=== PATIENT | female | born 1995 | race Caucasian/White ===

== ENCOUNTER 2021-03-14 09:47 | Emergency (ER) | payer SELFPAY ==
[2021-03-14 11:18] LABS: BLOOD UREA NITROGEN,BUN 12 mg/dL (7.0-18.0); CARBON DIOXIDE,CO2 27.4 mmol/L (21.0-32.0); CHLORIDE,CL 102 mmol/L (98-107); GLUCOSE RANDOM 94 mg/dL (74-106); LIPASE 121 U/L (73-393); POTASSIUM,K 3.7 mmol/L (3.5-5.1); SODIUM,NA 139 mmol/L (136-145)
[2021-03-14] MEDS ORDERED: cefTRIAXone 1 GM in Premix Bag 1 BAG IV ONE (11:48)
--- NOTE | 2021-03-14 11:51 | US ---
Indication: Right upper quadrant pain peer Technique: Sonography of the abdomen was performed limited to the structures discussed below Comparison: None Findings: Mildly prominent liver measuring 13.2 centimeters. Appropriate direction of hepatic flow. Abnormal hepatic echogenicity in a pattern most consistent with fatty infiltration. No intrahepatic biliary ductal dilatation The gallbladder is abnormal. There are multiple calculi identified. Most are mobile but there is a 2 centimeter stone in the gallbladder neck which is not mobile. There is a sonographic Castorena`s sign. Trace pericholecystic fluid by the gallbladder neck. No wall thickening. The wall measures 2 millimeters. The common duct measures 4 millimeters which is normal The right kidney is unremarkable. The pancreas is poorly seen due to overlying bowel gas. Impression: Abnormal gallbladder. The findings are likely due to early acute cholecystitis in the appropriate clinical setting. Hepatic steatosis. I discussed the above findings with Rg Malhotra at 11:45 a.m. on March 14, 2021 Dictated by Sebastián Tirado MD @ 03/14/2021 11:50:36 AM (Electronically Signed)
[2021-03-14] MEDS ORDERED: Lactated Ringers 1,000 ML IV STA (11:55)
--- NOTE | 2021-03-14 12:03 | EDM.PDOC ---
ED HPI GENERAL MEDICAL PROBLEM - General Chief Complaint: Abdominal Pain Stated Complaint: abdominal pain Time Seen by Provider: 03/14/21 10:10 - History of Present Illness INITIAL COMMENTS - FREE TEXT/NARRATIVE: CHIEF COMPLAINT(S): Abdominal pain HISTORY OF PRESENT ILLNESS: This is a 25-year-old and with a past medical history of obesity who comes to the emergency department with a chief complaint of abdominal pain. The patient states that off and on for the last 3 weeks she has been experiencing abdominal pain in the epigastric and right upper quadrant area associated with nonbloody nonbilious vomiting. She states that her last vomit was approximately 8 to 9 hours ago after she had a strawberry. She states that this pain does radiate to her back. She currently rates her pain a 0 out of 10 but when she has her pain is 8 out of 10. She describes it as crampy. She denies any excessive alcohol use and has had no history of cholecystitis. She states that the pain is exacerbated by food. There are no relieving factors. She denies any dysuria, hematuria, vaginal bleeding or vaginal discharge. REVIEW OF SYSTEMS: Constitutional: Denies fever, chills. Eyes: Denies eye pain Ears, Nose, Mouth, & Throat: Denies earache Cardiovascular: Denies chest pain Respiratory: Denies shortness of breath Gastrointestinal: Positive for abdominal pain, nausea, vomiting. Denies diarrhea, medic easier, hematemesis, bilious emesis Genitourinary: Denies hematuria dysuria, vaginal bleeding, vaginal discharge skin:Denies a rash MSK: Denies joint pain Neurological: Denies blurred vision Psychiatric: Denies depression PAST MEDICAL HISTORY: As per history of present illness and as reviewed below otherwise noncontributory. SURGICAL HISTORY: As per history of present illness and as reviewed below otherwise noncontributory. SOCIAL HISTORY: As per history of present illness and as reviewed below otherwise noncontributory. FAMILY HISTORY: As per history of present illness and as reviewed below otherwise noncontributory. EXAMINATION OF ORGAN SYSTEMS/BODY AREAS: Constitutional: Blood pressure is 144/85, heart rate 73, respiratory rate 16 with an oxygen saturation 98% on room air. Temperature 36.2 General: Young woman who does not appear to be in acute distress Psychiatric: Appropriate mood and affect. Eyes: No scleral icterus or conjunctival erythema ENMT: Moist mucous membranes. No pharyngeal erythema Cardiovascular: Regular, rate, and rhythm. No gallops, murmurs, or rubs. Bilateral upper extremity pulses symmetric and intact. No peripheral edema. No JVD. Respiratory: Lungs clear to auscultation bilaterally. No wheezes, rales, or rhonchi. Gastrointestinal: Soft, nondistended, tenderness to palpation in the epigastric and right upper quadrant. Positive Castorena sign. Negative McBurney's. No peritoneal signs genitourinary: No suprapubic tenderness Musculoskeletal: Normal range of motion. Skin: No lesions or abrasions. Neurological: Alert, GCS 15 MEDICAL DECISION MAKING AND COURSE IN THE ED WITH INTERPRETATION/REVIEW OF DIAGNOSTIC STUDIES: This is a 25-year-old woman with a past medical history of obesity who comes to the emergency department with acute abdominal pain that w orsens with food in the epigastric and right upper quadrant with positive Castorena sign who has stable vital signs. At this time I did discuss pain medication administration with the patient. At this time she elected for no pain medication. Patient's last meal was 1:30 AM. I placed her on n.p.o. status and started on maintenance fluids. At this time will obtain CBC, CMP, urine and urine hCG. Obtain a Covid swab. We also obtain a right upper quadrant ultrasound. DDx: Cholecystitis, pancreatitis Laboratory: CBC is unremarkable. CMP is unremarkable. Lipase is normal. hCG is negative. Urinalysis does reveal positive nitrites, negative leukocyte esterase with 2-3 WBCs and 1+ bacteria. This is likely asymptomatic bacteriuria given the patient does not have any symptoms. The radiological images were viewed by myself along with reading the report from the radiologist. Right upper quadrant abdominal ultrasound reveals cholelithiasis with a 2 cm stone stuck in the gallbladder neck associated with positive Castorena sign and pericholecystic fluid. Likely indicating early acute cholecystitis. After the imaging I did start the patient on ceftriaxone and I contacted general surgeon Dr. Bradshaw who stated he would come down and evaluate the patient in the emergency department. Dr. Bradshaw did come and evaluate the patient. At this time he discussed outpatient evaluation tomorrow and surgical intervention in the evening. I did discuss strict return precautions with the patient. She was amenable discharge at this time and had no further questions. She she will follow up tomorrow for surgical intervention DISPOSITION: The patient was discharged home in stable condition. The patient will follow up with General surgery tomorrow for surgery CONDITION: Fair PROCEDURES: None FINAL IMPRESSION(S)/DIAGNOSES: 1. Acute cholecystitis Timothy Malhotra M.D. abdominal Pain Score (Numeric/FACES): 3 - Related Data Allergies Allergy/AdvReac Type Severity Reaction Status Date / Time No Known Allergies Allergy Verified 03/14/21 09:56 Home Meds: Home Meds Hydrocodone/Acetaminophen [HYDROcodone-Acetaminophen 5-325 MG] 1 each PO Q6H #4 tab 03/14/21 [Rx] cephALEXin [Keflex] 500 mg PO BID #6 cap 03/14/21 [Rx] Past Medical History - Past Health History Medical/Surgical History: Denies Medical/Surgical History - Infectious Disease History Infectious Disease History: Reports: None Social & Family History - Family History Family Medical History: No Pertinent Family History GI: Reports: GERD - Caffeine Use Caffeine Use: Reports: Coffee - Recreational Drug Use Recreational Drug Use: Yes Recreational Drug Type: Reports: Marijuana/Hashish Recreational Drug Use Frequency: Daily ED ROS GENERAL - Review of Systems Review Of Systems: See Below ED EXAM, GENERAL - Physical Exam Exam: See Below Course - Vital Signs Last Recorded V/S: Last Vital Signs Temp 36.2 C 03/14/21 09:57 Pulse 67 03/14/21 13:12 Resp 16 03/14/21 13:12 BP 134/93 H 03/14/21 13:12 Pulse Ox 99 03/14/21 13:12 - Orders/Labs/Meds Labs: Laboratory Tests 03/14/21 03/14/21 03/14/21 Range/Units 10:35 10:35 10:45 WBC 10.50 (4.0-11.0) K/uL RBC 5.08 (4.30-5.90) M/uL Hgb 13.8 (12.0-16.0) g/dL Hct 40.8 (36.0-46.0) % MCV 80.3 (80.0-98.0) fL MCH 27.2 (27.0-32.0) pg MCHC 33.8 (31.0-37.0) g/dL RDW Std Deviation 40.1 (28.0-62.0) fl RDW Coeff of Cecil 14 (11.0-15.0) % Plt Count 404 H (150-400) K/uL MPV 9.50 (7.40-12.00) fL Neut % (Auto) 60.2 (48.0-80.0) % Lymph % (Auto) 28.1 (16.0-40.0) % [place] % (Auto) 10.5 (0.0-15.0) % Eos % (Auto) 0.7 (0.0-7.0) % Baso % (Auto) 0.5 (0.0-1.5) % Neut # (Auto) 6.3 H (1.4-5.7) K/uL Lymph # (Auto) 3.0 H (0.6-2.4) K/uL [place] # (Auto) 1.1 H (0.0-0.8) K/uL Eos # (Auto) 0.1 (0.0-0.7) K/uL Baso # (Auto) 0.1 (0.0-0.1) K/uL Nucleated RBC % 0.0 /100WBC Nucleated RBCs # 0 K/uL Sodium (136-145) mmol/L Potassium (3.5-5.1) mmol/L Chloride (98-107) mmol/L Carbon Dioxide (21.0-32.0) mmol/L BUN (7.0-18.0) mg/dL Creatinine (0.6-1.0) mg/dL Est Cr Clr Drug Dosing mL/min Estimated GFR (MDRD) ml/min Glucose (74-106) mg/dL Calcium (8.5-10.1) mg/dL Total Bilirubin (0.2-1.0) mg/dL AST (15-37) IU/L ALT (14-63) IU/L Alkaline Phosphatase (46-116) U/L Total Protein (6.4-8.2) g/dL Albumin (3.4-5.0) g/dL Globulin (2.6-4.0) g/dL Albumin/Globulin Ratio (0.9-1.6) Lipase (73-393) U/L Urine Color DARK YELLOW Urine Appearance CLOUDY Urine pH 6.0 (5.0-8.0) Ur Specific [place] >= 1.030 (1.001-1.035) Urine Protein TRACE H (NEGATIVE) mg/dL Urine Glucose (UA) NEGATIVE (NEGATIVE) mg/dL Urine Ketones 15 H (NEGATIVE) mg/dL Urine Occult Blood TRACE-INTACT H (NEGATIVE) Urine Nitrite POSITIVE H (NEGATIVE) Urine Bilirubin MODERATE H (NEGATIVE) Urine Urobilinogen 1.0 (<2.0) EU/dL Ur Leukocyte Esterase NEGATIVE (NEGATIVE) Urine RBC 0-2 (0-2/HPF) Urine WBC 2-3 (0-5/HPF) Ur Epithelial Cells FEW (NONE-FEW) Urine Bacteria 1+ H (NEGATIVE) Urine Mucus MODERATE (NONE-MOD) Urine HCG, Qual NEGATIVE (NEGATIVE) Influenza Type A RNA (NEGATIVE) Influenza Type B RNA (NEGATIVE) SARS-CoV-2 RNA (SORAYA) (NEGATIVE) 03/14/21 03/14/21 Range/Units 10:45 11:59 WBC (4.0-11.0) K/uL RBC (4.30-5.90) M/uL Hgb (12.0-16.0) g/dL Hct (36.0-46.0) % MCV (80.0-98.0) fL MCH (27.0-32.0) pg MCHC (31.0-37.0) g/dL RDW Std Deviation (28.0-62.0) fl RDW Coeff of Cecil (11.0-15.0) % Plt Count (150-400) K/uL MPV (7.40-12.00) fL Neut % (Auto) (48.0-80.0) % Lymph % (Auto) (16.0-40.0) % Louis[place] % (Auto) (0.0-15.0) % Eos % (Auto) (0.0-7.0) % Baso % (Auto) (0.0-1.5) % Neut # (Auto) (1.4-5.7) K/uL Lymph # (Auto) (0.6-2.4) K/uL [place] # (Auto) (0.0-0.8) K/uL Eos # (Auto) (0.0-0.7) K/uL Baso # (Auto) (0.0-0.1) K/uL Nucleated RBC % /100WBC Nucleated RBCs # K/uL Sodium 139 (136-145) mmol/L Potassium 3.7 (3.5-5.1) mmol/L Chloride 102 (98-107) mmol/L Carbon Dioxide 27.4 (21.0-32.0) mmol/L BUN 12 (7.0-18.0) mg/dL Creatinine 1.0 (0.6-1.0) mg/dL Est Cr Clr Drug Dosing 84.36 mL/min Estimated GFR (MDRD) > 60.0 ml/min Glucose 94 (74-106) mg/dL Calcium 9.4 (8.5-10.1) mg/dL Total Bilirubin 0.8 (0.2-1.0) mg/dL AST 16 (15-37) IU/L ALT 42 (14-63) IU/L Alkaline Phosphatase 51 (46-116) U/L Total Protein 7.5 (6.4-8.2) g/dL Albumin 4.1 (3.4-5.0) g/dL Globulin 3.4 (2.6-4.0) g/dL Albumin/Globulin Ratio 1.2 (0.9-1.6) Lipase 121 (73-393) U/L Urine Color Urine Appearance Urine pH (5.0-8.0) Ur Specific [place] (1.001-1.035) Urine Protein (NEGATIVE) mg/dL Urine Glucose (UA) (NEGATIVE) mg/dL Urine Ketones (NEGATIVE) mg/dL Urine Occult Blood (NEGATIVE) Urine Nitrite (NEGATIVE) Urine Bilirubin (NEGATIVE) Urine Urobilinogen (<2.0) EU/dL Ur Leukocyte Esterase (NEGATIVE) Urine RBC (0-2/HPF) Urine WBC (0-5/HPF) Ur Epithelial Cells (NONE-FEW) Urine Bacteria (NEGATIVE) Urine Mucus (NONE-MOD) Urine HCG, Qual (NEGATIVE) Influenza Type A RNA NEGATIVE (NEGATIVE) Influenza Type B RNA NEGATIVE (NEGATIVE) SARS-CoV-2 RNA (SORAYA) NEGATIVE (NEGATIVE) Meds: Medications Discontinued Medications Generic Name Dose Route Start Last Admin Trade Name Freq PRN Reason Stop Dose Admin Ceftriaxone Sodium/Dextrose 1 50 mls @ 100 mls/hr 03/14/21 11:48 03/14/21 12:02 gm/ Premix IV 03/14/21 12:17 100 mls/hr ONETIME ONE Administration Lactated Ringer's 1,000 mls @ 125 mls/hr 03/14/21 11:55 03/14/21 12:06 Ringers, Lactated IV 03/14/21 19:54 125 mls/hr STAT STA Administration Departure - Departure Time of Disposition: 13:10 Disposition: Home, Self-Care 01 Condition: Fair Clinical Impression: Cholecystitis, UTI (urinary tract infection) - Discharge Information *PRESCRIPTION DRUG MONITORING PROGRAM REVIEWED*: No *COPY OF PRESCRIPTION DRUG MONITORING REPORT IN PATIENT MIKHAIL: No Prescriptions: Hydrocodone/Acetaminophen [HYDROcodone-Acetaminophen 5-325 MG] 1 each PO Q6H #4 tab cephALEXin [Keflex] 500 mg PO BID #6 cap Instructions: Urinary Tract Infection, Adult, [id number], Cholecystitis, [id number] Referrals: Zina Diaz [employer]ACHINE [Primary Care Provider] - Forms: ED Department Discharge Additional Instructions: You were evaluated today on an emergent basis. At this time there is evidence of a gallstone stuck in your gallbladder causing inflammation. What we call this is cholecystitis. I recommend that you do not drink any fluids after midnight and you may use the [place] every 6 hours as needed for severe pain. In addition per recommendation of the general surgeon I did start you on Keflex. This is for the UTI on your labs. Please take this twice a day for the next 3 days. If you have any worsening symptoms such as fever, worsening abdominal pain I would like you to return to the emergency department. Your prescriptions were sent to [facility]. [facility] - General Surgery [address], [address] [place] [address] The patient is informed of any results of their evaluation and diagnostic workup and all questions are answered. They are given discharge instructions and return precautions. The patient is stable for discharge. The patient states they understand and agree with the plan and that they will return if their symptoms get worse or if they have any new concerns. The following information is given to patients seen in the emergency department who are being discharged to home. This information is to outline your options for follow-up care. We provide all patients seen in our emergency department with a follow-up referral. The need for follow-up, as well as the timing and circumstances, are variable depending upon the specifics of your emergency department visit. If you don't have a primary care physician on staff, we will provide you with a referral. We always advise you to contact your personal physician following an emergency department visit to inform them of the circumstance of the visit and for follow-up with them and/or the need for any referrals to a consulting specialist. The emergency department will also refer you to a specialist when appropriate. This referral assures that you have the opportunity for follow-up care with a specialist. All of these measure are taken in an effort to provide you with optimal care, which includes your follow-up. Under all circumstances we always encourage you to contact your private physician who remains a resource for coordinating your care. When calling for follow-up care, please make the office aware that this follow-up is from your recent emergency room visit. If for any reason you are refused follow-up, please contact the [facility] Emergency Department at and asked to speak to the emergency department charge nurse. Sepsis Event Note (ED) - Evaluation Sepsis Screening Result: No Definite Risk
[2021-03-14 12:40] LABS: CORONAVIRUS COVID-19 NAA NEGATIVE (NEGATIVE); INFLUENZA A NAA NEGATIVE (NEGATIVE); INFLUENZA B NAA NEGATIVE (NEGATIVE)
[2021-03-14 13:29] VITALS: BP 134/93; PULSE 67
--- NOTE | 2021-03-14 15:40 | PCM.HP.2 ---
H&P History of Present Illness - General Date of Service: 03/14/21 Admit Problem/Dx: cholecystitis - History of Present Illness Initial Comments - Free Text/Narative: This is admission h/p and ED consult for the pt; Pt seen in ED for n/vomitting/abd pain, work up included US revealed, many stones and 1 large one was on neck of gallbladder. Surgery was consulted; pt remarked its been 1 month since happening, usually it is RUQ pain, radiated to high back via right shoulder; denied jaundice/darl irome/white stool abdominal Pain Score (Numeric/FACES): 4 - Related Data Allergies/Adverse Reactions: Allergies Allergy/AdvReac Type Severity Reaction Status Date / Time No Known Allergies Allergy Verified 03/14/21 09:56 Home Medications: Home Meds Hydrocodone/Acetaminophen [HYDROcodone-Acetaminophen 5-325 MG] 1 each PO Q6H #4 tab 03/14/21 [Rx] cephALEXin [Keflex] 500 mg PO BID #6 cap 03/14/21 [Rx] Past Medical History - Past Health History Medical/Surgical History: Denies Medical/Surgical History - Infectious Disease History Infectious Disease History: Reports: None - Past Surgical History Head Surgeries/Procedures: Reports: None Social & Family History - Family History Family Medical History: No Pertinent Family History GI: Reports: GERD - Caffeine Use Caffeine Use: Reports: Coffee - Recreational Drug Use Recreational Drug Use: Yes Recreational Drug Type: Reports: Marijuana/Hashish Recreational Drug Use Frequency: Daily H&P Review of Systems - Review of Systems: Review Of Systems: Comprehensive ROS is negative, except as noted in HPI. General: Reports: No Symptoms HEENT: Reports: No Symptoms Pulmonary: Reports: No Symptoms Cardiovascular: Reports: No Symptoms Gastrointestinal: Reports: Abdominal Pain Genitourinary: Reports: No Symptoms Musculoskeletal: Reports: No Symptoms Skin: Reports: No Symptoms Psychiatric: Reports: Agitation Neurological: Reports: No Symptoms Hematologic/Lymphatic: Reports: No Symptoms Immunologic: Reports: No Symptoms Exam - Exam Exam: See Below - Vital Signs Vital Signs: Last Vital Signs Temp 97.1 F 03/14/21 09:57 Pulse 67 03/14/21 13:12 Resp 16 03/14/21 13:12 BP 134/93 H 03/14/21 13:12 Pulse Ox 99 03/14/21 13:12 Weight: 240 lb - Exam General: Alert, Oriented HEENT: Conjunctiva Clear Neck: Supple, Trachea Midline Lungs: Clear to Auscultation, Rhonchi Cardiovascular: Regular Rate, Regular Rhythm GI/Abdominal Exam: Normal Bowel Sounds, Soft, No Organomegaly, No Distention (Female) Exam: Normal External Exam, Normal Speculum Exam, Normal Bimanual Exam Rectal (Female) Exam: Normal Exam, Normal Rectal Tone Back Exam: Normal Inspection, Full Range of Motion (motor 5/5) Extremities: Normal Inspection, Normal Range of Motion, Non-Tender, No Pedal Edema, Normal Capillary Refill Skin: Warm, Dry, Intact Neurological: Cranial Nerves Intact, Reflexes Equal Bilateral Neuro Extensive - Mental Status: Alert, Oriented x3, Normal Mood/Affect, Normal Cognition Neuro Extensive - Motor, Sensory, Reflexes: CN II-XII Intact, Normal Gait, No rmal Reflexes Psychiatric: Alert, Normal Affect, Normal Mood - Patient Data Lab Results Last 24 hrs: Laboratory Results - last 24 hr 03/14/21 03/14/21 03/14/21 Range/Units 10:35 10:35 10:45 WBC 10.50 (4.0-11.0) K/uL RBC 5.08 (4.30-5.90) M/uL Hgb 13.8 (12.0-16.0) g/dL Hct 40.8 (36.0-46.0) % MCV 80.3 (80.0-98.0) fL MCH 27.2 (27.0-32.0) pg MCHC 33.8 (31.0-37.0) g/dL RDW Std Deviation 40.1 (28.0-62.0) fl RDW Coeff of Cecil 14 (11.0-15.0) % Plt Count 404 H (150-400) K/uL MPV 9.50 (7.40-12.00) fL Neut % (Auto) 60.2 (48.0-80.0) % Lymph % (Auto) 28.1 (16.0-40.0) % [place] % (Auto) 10.5 (0.0-15.0) % Eos % (Auto) 0.7 (0.0-7.0) % Baso % (Auto) 0.5 (0.0-1.5) % Neut # (Auto) 6.3 H (1.4-5.7) K/uL Lymph # (Auto) 3.0 H (0.6-2.4) K/uL [place] # (Auto) 1.1 H (0.0-0.8) K/uL Eos # (Auto) 0.1 (0.0-0.7) K/uL Baso # (Auto) 0.1 (0.0-0.1) K/uL Nucleated RBC % 0.0 /100WBC Nucleated RBCs # 0 K/uL Sodium (136-145) mmol/L Potassium (3.5-5.1) mmol/L Chloride (98-107) mmol/L Carbon Dioxide (21.0-32.0) mmol/L BUN (7.0-18.0) mg/dL Creatinine (0.6-1.0) mg/dL Est Cr Clr Drug Dosing mL/min Estimated GFR (MDRD) ml/min Glucose (74-106) mg/dL Calcium (8.5-10.1) mg/dL Total Bilirubin (0.2-1.0) mg/dL AST (15-37) IU/L ALT (14-63) IU/L Alkaline Phosphatase (46-116) U/L Total Protein (6.4-8.2) g/dL Albumin (3.4-5.0) g/dL Globulin (2.6-4.0) g/dL Albumin/Globulin Ratio (0.9-1.6) Lipase (73-393) U/L Urine Color DARK YELLOW Urine Appearance CLOUDY Urine pH 6.0 (5.0-8.0) Ur Specific [place] >= 1.030 (1.001-1.035) Urine Protein TRACE H (NEGATIVE) mg/dL Urine Glucose (UA) NEGATIVE (NEGATIVE) mg/dL Urine Ketones 15 H (NEGATIVE) mg/dL Urine Occult Blood TRACE-INTACT H (NEGATIVE) Urine Nitrite POSITIVE H (NEGATIVE) Urine Bilirubin MODERATE H (NEGATIVE) Urine Urobilinogen 1.0 (<2.0) EU/dL Ur Leukocyte Esterase NEGATIVE (NEGATIVE) Urine RBC 0-2 (0-2/HPF) Urine WBC 2-3 (0-5/HPF) Ur Epithelial Cells FEW (NONE-FEW) Urine Bacteria 1+ H (NEGATIVE) Urine Mucus MODERATE (NONE-MOD) Urine HCG, Qual NEGATIVE (NEGATIVE) Influenza Type A RNA (NEGATIVE) Influenza Type B RNA (NEGATIVE) SARS-CoV-2 RNA (SORAYA) (NEGATIVE) 03/14/21 03/14/21 Range/Units 10:45 11:59 WBC (4.0-11.0) K/uL RBC (4.30-5.90) M/uL Hgb (12.0-16.0) g/dL Hct (36.0-46.0) % MCV (80.0-98.0) fL MCH (27.0-32.0) pg MCHC (31.0-37.0) g/dL RDW Std Deviation (28.0-62.0) fl RDW Coeff of [place] (11.0-15.0) % Plt Count (150-400) K/uL MPV (7.40-12.00) fL Neut % (Auto) (48.0-80.0) % Lymph % (Auto) (16.0-40.0) % [place] % (Auto) (0.0-15.0) % Eos % (Auto) (0.0-7.0) % Baso % (Auto) (0.0-1.5) % Neut # (Auto) (1.4-5.7) K/uL Lymph # (Auto) (0.6-2.4) K/uL [place] # (Auto) (0.0-0.8) K/uL Eos # (Auto) (0.0-0.7) K/uL Baso # (Auto) (0.0-0.1) K/uL Nucleated RBC % /100WBC Nucleated RBCs # K/uL Sodium 139 (136-145) mmol/L Potassium 3.7 (3.5-5.1) mmol/L Chloride 102 (98-107) mmol/L Carbon Dioxide 27.4 (21.0-32.0) mmol/L BUN 12 (7.0-18.0) mg/dL Creatinine 1.0 (0.6-1.0) mg/dL Est Cr Clr Drug Dosing 84.36 mL/min Estimated GFR (MDRD) > 60.0 ml/min Glucose 94 (74-106) mg/dL Calcium 9.4 (8.5-10.1) mg/dL Total Bilirubin 0.8 (0.2-1.0) mg/dL AST 16 (15-37) IU/L ALT 42 (14-63) IU/L Alkaline Phosphatase 51 (46-116) U/L Total Protein 7.5 (6.4-8.2) g/dL Albumin 4.1 (3.4-5.0) g/dL Globulin 3.4 (2.6-4.0) g/dL Albumin/Globulin Ratio 1.2 (0.9-1.6) Lipase 121 (73-393) U/L Urine Color Urine Appearance Urine pH (5.0-8.0) Ur Specific [place] (1.001-1.035) Urine Protein (NEGATIVE) mg/dL Urine Glucose (UA) (NEGATIVE) mg/dL Urine Ketones (NEGATIVE) mg/dL Urine Occult Blood (NEGATIVE) Urine Nitrite (NEGATIVE) Urine Bilirubin (NEGATIVE) Urine Urobilinogen (<2.0) EU/dL Ur Leukocyte Esterase (NEGATIVE) Urine RBC (0-2/HPF) Urine WBC (0-5/HPF) Ur Epithelial Cells (NONE-FEW) Urine Bacteria (NEGATIVE) Urine Mucus (NONE-MOD) Urine HCG, Qual (NEGATIVE) Influenza Type A RNA NEGATIVE (NEGATIVE) Influenza Type B RNA NEGATIVE (NEGATIVE) SARS-CoV-2 RNA (SORAYA) NEGATIVE (NEGATIVE) Result Diagrams: 03/14/21 10:45 03/14/21 10:45 Sepsis Event Note - Evaluation Sepsis Screening Result: No Definite Risk - Focused Exam Vital Signs: Vital Signs Temp Pulse Resp BP Pulse Ox 03/14/21 13:12 67 16 134/93 H 99 03/14/21 12:41 69 129/83 99 03/14/21 11:41 59 L 135/86 99 03/14/21 11:12 65 122/68 98 03/14/21 09:57 97.1 F 73 16 144/85 H 98 *Q Meaningful Use (ADM) - VTE *Q VTE Criteria *Q: pt is ambulatory Problem List Initiated/Reviewed/Updated: Yes Orders Last 24hrs: Active Orders 24 hr Category Date Time Status Consult to Physician [CONS] Stat Cons 03/14/21 11:54 Active WBC 10, LFT wnl, US has pericholecystetic fluid, and many stones; pt would benefit from gb surgery, lap vs open, rb dw pt re bleeding/infection/bile leak/postop course; pt concur and proceed; pt also has UTI from UA, but asymptomatic, would give script for pain and abx; preop teaching done; surgery scheduled for tomorrow; pt voiced understanding; Assessment/Plan Comment:: Active Orders 24 hr Category Date Time Status Consult to Physician [CONS] Stat Cons 03/14/21 11:54 Active WBC 10, LFT wnl, US has pericholecystetic fluid, and many stones; pt would benefit from gb surgery, lap vs open, rb dw pt re bleeding/infection/bile leak/ postop course; pt concur and proceed; pt also has UTI from UA, but asymptomatic, would give script for pain and abx; preop teaching done; surgery scheduled for tomorrow; pt voiced understanding;
== END 2021-03-14 13:31 | disposition home or self-care (01) ==
LOC: MW.ED 09:47
DX: N39.0 Urinary tract infection, site not specified (principal); K81.0 Acute cholecystitis; E66.9 Obesity, unspecified; Z20.822 Contact with and (suspected) exposure to COVID-19; Z68.37 Body mass index [BMI] 37.0-37.9, adult
CPT/HCPCS: 0240U; 36415; 76705; 80053; 81001; 81025; 83690; 85025; 96365; 99284; J0696; J7120

== ENCOUNTER 2021-03-15 09:25 | Day surgery (SDC) | payer BC ==
[~2021-03-15 09:25] MED LIST: Lactated Ringers 1,000 ML IV SCH; cefOXitin 2 GM in Premix Bag 1 BAG IV ONE
[2021-03-15] MEDS ORDERED: Scopolamine 1.5 MG Transdermal Patch ONE (10:20)
[2021-03-15] MEDS ORDERED: Bupivacaine 25%/EPINEPHrine/PF 30 ML ONE (10:26)
[2021-03-15] MEDS ORDERED: Octyl 2-Cyanoacrylate 1 Tube ONE (10:26)
[2021-03-15] MEDS ORDERED: Propofol 200 MG/20 ML SDV ONE ×2 (10:49→12:06)
[2021-03-15] MEDS ORDERED: Lidocaine 2% 5 ML SDV ONE (10:49)
[2021-03-15] MEDS ORDERED: Dexamethasone 4 MG/ML 5 ML MDV ONE (10:49)
[2021-03-15] MEDS ORDERED: Rocuronium Bromide 50 MG/5 ML Syringe ONE ×2 (10:49→11:35)
[2021-03-15] MEDS ORDERED: Midazolam 1 MG/ML 2 ML SDV ONE (10:49)
[2021-03-15] MEDS ORDERED: fentaNYL 100 MCG/2 ML SDV ONE ×2 (10:49→12:38)
[2021-03-15] MEDS ORDERED: Esmolol 100 MG/10 ML SDV ONE (10:50)
[2021-03-15] MEDS ORDERED: Water For Injection, Sterile 20 ML ONE (10:52)
--- NOTE | 2021-03-15 11:03 | PCM.PREANE ---
Preanesthetic Assessment - Procedure Proposed Procedure: Lap Angela - Anesthesia/Transfusion/Family Hx Anesthesia History: Prior Anesthesia Without Reaction Family History of Anesthesia Reaction: No Transfusion History: No Prior Transfusion(s) - Review of Systems General: No Symptoms Pulmonary: No Symptoms (Smokes 1/2 PPD) Cardiovascular: No Symptoms Gastrointestinal: No Symptoms Neurological: No Symptoms Other: Reports: None - Physical Assessment NPO Status Date: 03/14/21 NPO Status Time: 22:30 Height: 5 ft 7 in Weight: 112.037 kg ASA Class: 2 Mental Status: Alert & Oriented x3 Airway Class: Mallampati = 2 Dentition: Reports: Normal Dentition Thyro-Mental Finger Breadths: 3 Mouth Opening Finger Breadths: 3 ROM/Head Extension: Full Lungs: Clear to Auscultation, Normal Respiratory Effort Cardiovascular: Regular Rate, Regular Rhythm - Allergies Allergies/Adverse Reactions: Allergies Allergy/AdvReac Type Severity Reaction Status Date / Time No Known Allergies Allergy Verified 03/14/21 09:56 - Acknowledgements Anesthesia Type Planned: General Anesthesia Pt an Appropriate Candidate for the Planned Anesthesia: Yes Alternatives and Risks of Anesthesia Discussed w Pt/Guardian: Yes Pt/Guardian Understands and Agrees with Anesthesia Plan: Yes PreAnesthesia Questionnaire - Past Health History Medical/Surgical History: Denies Medical/Surgical History HEENT History: Reports: Other (See Below) Other HEENT History: wears glasses Gastrointestinal History: Reports: Cholelithiasis Other Musculoskeletal History: bursitis in right hip Endocrine/Metabolic History: Reports: Obesity/BMI 30+ - Infectious Disease History Infectious Disease History: Reports: None - Past Surgical History Head Surgeries/Procedures: Reports: None - SUBSTANCE USE Tobacco Use Status *Q: Current Every Day Tobacco User Tobacco Use Within Last Twelve Months: Cigarettes Recreational Drug Type: Reports: Marijuana/Hashish - HOME MEDS Home Medications: Home Meds Hydrocodone/Acetaminophen [HYDROcodone-Acetaminophen 5-325 MG] 1 each PO Q6H #4 tab 03/14/21 [Rx] cephALEXin [Keflex] 500 mg PO BID #6 cap 03/14/21 [Rx] - CURRENT (IN HOUSE) MEDS Current Meds: Current Medications Lactated Ringer's (Ringers, Lactated) 1,000 mls @ 125 mls/hr IV ASDIRECTED VENANCIO Discontinued Medications Dexamethasone (Dexamethasone 4 Mg/Ml 5 Ml Mdv) Confirm Administered Dose 20 mg .ROUTE .[facility] ONE Stop: 03/15/21 10:50 Esmolol HCl (Esmolol 100 Mg/10 Ml Sdv) Confirm Administered Dose 100 mg .ROUTE .[facility] ONE Stop: 03/15/21 10:51 Fentanyl (Fentanyl 100 Mcg/2 Ml Sdv) Confirm Administered Dose 100 mcg .ROUTE .[facility] ONE Stop: 03/15/21 10:50 Cefoxitin Sodium 2 gm/ Premix 50 mls @ 100 mls/hr IV ONETIME ONE Stop: 03/15/21 05:29 Bupivacaine HCl/Epinephrine Bitart (Sensorc Mpf 0.25%-Epi [id number]) Confirm Administered Dose 30 mls @ as directed .ROUTE .[facility] ONE Stop: 03/15/21 10:27 Sterile Water (Sterile Water For Injection) Confirm Administered Dose 20 mls @ as directed .ROUTE .[facility] ONE Stop: 03/15/21 10:53 Lidocaine (Lidocaine 2% 5 Ml Sdv) Confirm Administered Dose 5 ml .ROUTE .[facility] ONE Stop: 03/15/21 10:50 Midazolam HCl (Midazolam 1 Mg/Ml 2 Ml Sdv) [facility] Stop: 03/15/21 10:50 Octyl Cyanoacrylate (Octyl 2-Cyanoacrylate 1 Tube) Confirm Administered Dose 1 applic .[address] .[facility] ONE Stop: 03/15/21 10:27 Propofol (Propofol 200 Mg/20 Ml Sdv) Confirm Administered Dose 200 mg .ROUTE .[facility] ONE Stop: 03/15/21 10:50 Rocuronium [place] (Rocuronium [place] 50 Mg/5 Ml Syringe) Confirm Administered Dose 50 mg .ROUTE .[facility] ONE Stop: 03/15/21 10:50 Scopolamine (Scopolamine 1.5 Mg Transdermal Patch) Confirm Administered D[facility].5 [facility] Stop: 03/15/21 10:21
[2021-03-15] MEDS ORDERED: fentaNYL 100 MCG/2 ML SDV IVPUSH PRN (11:39)
[2021-03-15] MEDS ORDERED: Ondansetron 4 MG/2 ML SDV IVPUSH PRN (11:39)
[2021-03-15] MEDS ORDERED: Naloxone 0.4 MG/ML SDV IVPUSH PRN (11:39)
[2021-03-15] MEDS ORDERED: Albuterol 0.083% 2.5 MG/3 ML Neb Soln NEB PRN (11:39)
[2021-03-15] MEDS ORDERED: Metoclopramide 10 MG/2 ML SDV IVPUSH PRN (11:39)
[2021-03-15] MEDS ORDERED: HYDROmorphone 1 MG/ML Syringe IVPUSH PRN (11:39)
[2021-03-15] MEDS ORDERED: Sugammadex Sodium 200 MG/2 ML VIAL ONE (11:57)
[2021-03-15] MEDS ORDERED: Ondansetron 4 MG/2 ML SDV ONE (11:57)
[2021-03-15] MEDS ORDERED: Ketorolac 30 MG/ML SDV ONE (11:57)
[2021-03-15] MEDS ORDERED: HYDROmorphone 2 MG/ML Syringe ONE (12:45)
--- NOTE | 2021-03-15 13:05 | PCM.POSTAN ---
POST ANESTHESIA ASSESSMENT - MENTAL STATUS Mental Status: Somnolent - VITAL SIGNS Vital Signs: Last Vital Signs Temp 97.7 F 03/15/21 10:05 Pulse 61 03/15/21 10:05 Resp 15 03/15/21 10:05 BP 155/87 H 03/15/21 10:05 Pulse Ox 100 03/15/21 10:05 - RESPIRATORY Respiratory Status: Respiratory Rate WNL, Airway Patent, O2 Saturation Stable - CARDIOVASCULAR CV Status: Pulse Rate WNL, Blood Pressure Stable - GASTROINTESTINAL GI Status: No Symptoms - PAIN Free Text/Narrative:: Resting comfortably - POST OP HYDRATION Hydration Status: Adequate & Stable
--- NOTE | 2021-03-15 13:10 | PCM.OPNOTE ---
- General Post-Op/Procedure Note Date of Surgery/Procedure: 03/15/21 Findings: gb wall is not thickened, but yellow and green cw acute and chronic cholecystitis; lots of stone, one bigger than 2 cm; [id number] Pre Op Diagnosis: acute cholecystitis Post-Op Diagnosis: Same Anesthesia Technique: General ET Tube Primary Surgeon: Carlos Bradshaw Pathology: sent Complications: None Condition: Good
--- NOTE | 2021-03-15 14:15 | PCM48HPAN ---
Post Anesthesia Note - EVALUATION WITHIN 48HRS OF ANESTHETIC Vital Signs in Normal Range: Yes Patient Participated in Evaluation: Yes Respiratory Function Stable: Yes Airway Patent: Yes Cardiovascular Function Stable: Yes Hydration Status Stable: Yes Pain Control Satisfactory: Yes Nausea and Vomiting Control Satisfactory: Yes Mental Status Recovered: Yes Vital Signs: Last Vital Signs Temp 97.9 F 03/15/21 13:00 Pulse 59 L 03/15/21 13:24 Resp 15 03/15/21 13:24 BP 130/74 03/15/21 13:24 Pulse Ox 96 03/15/21 13:24 - COMMENTS/OBSERVATIONS Free Text/Narrative:: Pt doing well post-op. VSS. No apparent anesthetic complications. Dr. Pepito Abreu
[2021-03-15] MEDS ORDERED: Acetaminophen/oxyCODONE 325-5 MG Tab PO PRN (14:24)
[2021-03-15] MEDS ORDERED: Acetaminophen/oxyCODONE 325-5 MG Tab ONE (14:27)
[2021-03-15 15:08] VITALS: BP 137/81; PULSE 48
--- NOTE | 2021-03-15 18:45 | OR ---
SURGEON: Carlos Bradshaw MD DATE OF PROCEDURE: 03/15/2021 PREOPERATIVE DIAGNOSIS: Acute on chronic cholecystitis. POSTOPERATIVE DIAGNOSIS: Acute on chronic cholecystitis. PROCEDURE PERFORMED: Laparoscopic cholecystectomy. PRIMARY SURGEON: Carlos Bradshaw MD COMPLICATION: None. FINDINGS: The gallbladder wall was yellow and green, although wall is not thickened. Multiple gallstones and the large one is bigger than 2 cm. PROCEDURE NOTE: The patient was taken to the operating room and placed in the supine position. After the intubation of general endotracheal anesthesia, the patient's abdomen was prepped and draped in the usual sterile fashion. Using [employer], a 12 mm trocar was placed supraumbilically and then followed with pneumoperitoneum. A 5 mm trocar was placed in the epigastrium and two 5 mm trocars placed in the right upper quadrant. The placement of the last three trocars was done under direct video supervision. Upon gaining entrance to the abdominal cavity, an extensive examination was then performed. The gallbladder was located and identified and retracted to the dome of the liver at the triangle of Calot. The cystic duct was clipped three more times and then using the endoscopic clip, was transected with placement of the endoscopic clip and transection was performed with care, ensuring the posterior prong of the instruments were clearly visualized prior to exercising the procedure. The gallbladder was dissected using electrocautery out of the liver bed and then removed using endoscopic bag through the umbilical site. The gallbladder was removed en bloc and there was no bile spillage and this was then followed with extensive irrigation until the bile was clear from blood and bile. The trocars were then removed under direct video supervision. The 12 mm umbilical site was then closed with deep stitches using 0 Vicryl followed with proximal stitches using 3-0 Vicryl and Dermabond. The other three trocar sites were closed with 3-0 Vicryl followed with approximation of skin with Dermabond. The patient was then awakened and extubated and transferred to the recovery room in hemodynamically stable condition. At the conclusion of the surgery, before closing the abdominal wound, instrument count and sponge count were done and were correct. The patient tolerated the procedure well and there were no intraoperative complications. Dr. Bradshaw was present through the whole procedure. Just before surgery, a timeout was called. The patient was identified and procedure identified and procedure started. Intraoperative findings, as dictated above. LIANS / MIRELLA /[id number]
== END 2021-03-15 15:00 | disposition home or self-care (01) ==
LOC: MW.SDS 09:25
PROVIDERS: ATTEND Surgery
DX: K80.12 Calculus of gallbladder with acute and chronic cholecystitis without obstruction (principal); F17.210 Nicotine dependence, cigarettes, uncomplicated; E66.9 Obesity, unspecified; Z79.899 Other long term (current) drug therapy; Z68.38 Body mass index [BMI] 38.0-38.9, adult
CPT/HCPCS: 47562; A9270; J0131; J0690; J1100; J1170; J1885; J2250; J2405; J2704; J3010; J3490; J7030; J7120; 00790

== ENCOUNTER 2021-05-07 11:04 | Emergency (ER) | payer BC ==
[2021-05-07] MEDS ORDERED: Sodium Chloride 0.9% 2.5 ML Syringe FLUSH PRN (11:40)
[2021-05-07] MEDS ORDERED: Sodium Chloride 0.9% 10 ML Syringe FLUSH PRN (11:40)
[2021-05-07] MEDS ORDERED: Haloperidol Lactate 5 MG/ML SDV IM ONE (11:40)
[2021-05-07] MEDS ORDERED: Lactated Ringers 1,000 ML IV ONE (11:41)
[2021-05-07 12:30] LABS: CARBON DIOXIDE,CO2 25.3 mmol/L (21.0-32.0); POTASSIUM,K 2.9 mmol/L (3.5-5.1)
[2021-05-07] MEDS ORDERED: Potassium Chloride Riders 20 MEQ in Premix Bag 1 BAG IV ONE (12:46)
[2021-05-07] MEDS ORDERED: Sodium Chloride 0.9% 1,000 ML IV ONE (12:52)
[2021-05-07 16:52] VITALS: BP 112/58; PULSE 79
[2021-05-07] MEDS ORDERED: Iopamidol 755 MG/ML 500 ML Multipack Bottle IVPUSH ONE (19:09)
== END 2021-05-07 17:03 | disposition home or self-care (01) ==
LOC: MW.ED 11:04
DX: R11.2 Nausea with vomiting, unspecified (principal); E87.6 Hypokalemia; E66.9 Obesity, unspecified; Z68.39 Body mass index [BMI] 39.0-39.9, adult; Z90.49 Acquired absence of other specified parts of digestive tract; Z79.899 Other long term (current) drug therapy
CPT/HCPCS: 36415; 74177; 80053; 83690; 84703; 85025; 96365; 96366; 96372; 99284; J1630; J3480; J7030; J7120; Q9967; 99283

== ENCOUNTER 2021-06-25 11:30 | Emergency (ER) | payer BC ==
[2021-06-25] MEDS ORDERED: Ondansetron 4 MG/2 ML SDV IVPUSH ONE (11:48)
[2021-06-25] MEDS ORDERED: Sodium Chloride 0.9% 1,000 ML IV ONE ×2 (11:48→12:13)
[2021-06-25 12:06] LABS: BLOOD UREA NITROGEN,BUN 7 mg/dL (7.0-18.0); CARBON DIOXIDE,CO2 23.5 mmol/L (21.0-32.0); CHLORIDE,CL 95 mmol/L (98-107); GLUCOSE RANDOM 104 mg/dL (74-106); LIPASE 99 U/L (73-393); POTASSIUM,K 3.5 mmol/L (3.5-5.1); SODIUM,NA 133 mmol/L (136-145)
[2021-06-25 12:59] LABS: CORONAVIRUS COVID-19 NAA NEGATIVE (NEGATIVE); INFLUENZA A NAA NEGATIVE (NEGATIVE); INFLUENZA B NAA NEGATIVE (NEGATIVE)
[2021-06-25] MEDS ORDERED: Magnesium Citrate Solution 296 ML Bottle PO ONE (14:52)
[2021-06-25 15:02] VITALS: BP 142/79; PULSE 98
[2021-06-25] MEDS ORDERED: Iopamidol 755 MG/ML 500 ML Multipack Bottle IVPUSH ONE (18:05)
== END 2021-06-25 15:09 | disposition home or self-care (01) ==
LOC: MW.ED 11:30
DX: E86.0 Dehydration (principal); R74.01 Elevation of levels of liver transaminase levels; E66.9 Obesity, unspecified; Z68.34 Body mass index [BMI] 34.0-34.9, adult; Z79.899 Other long term (current) drug therapy; Z90.49 Acquired absence of other specified parts of digestive tract; Z20.822 Contact with and (suspected) exposure to COVID-19
CPT/HCPCS: 0240U; 36415; 70450; 74177; 80053; 83690; 84703; 85025; 93005; 96374; 99284; A9270; J2405; J7030; Q9967; 93010; 99285

== ENCOUNTER 2021-06-26 14:59 | Emergency (ER) | payer BC ==
[2021-06-26] MEDS ORDERED: Ondansetron 4 MG/2 ML SDV IVPUSH ONE (19:17)
[2021-06-26] MEDS ORDERED: Sodium Chloride 0.9% 10 ML Syringe FLUSH PRN (19:17)
[2021-06-26] MEDS ORDERED: Sodium Chloride 0.9% 2.5 ML Syringe FLUSH PRN (19:17)
[2021-06-26] MEDS ORDERED: Lactated Ringers 1,000 ML IV ONE ×2 (19:17)
[2021-06-26 19:56] LABS: BLOOD UREA NITROGEN,BUN 5 mg/dL (7.0-18.0); CARBON DIOXIDE,CO2 23.8 mmol/L (21.0-32.0); CHLORIDE,CL 98 mmol/L (98-107); GLUCOSE RANDOM 98 mg/dL (74-106); LIPASE 110 U/L (73-393); POTASSIUM,K 3.4 mmol/L (3.5-5.1); SODIUM,NA 136 mmol/L (136-145)
[2021-06-26 20:45] VITALS: BP 143/72; PULSE 79
== END 2021-06-26 20:46 | disposition home or self-care (01) ==
LOC: MW.ED 14:59
DX: K56.41 Fecal impaction (principal); E66.9 Obesity, unspecified; Z68.34 Body mass index [BMI] 34.0-34.9, adult; Z79.899 Other long term (current) drug therapy; Z90.49 Acquired absence of other specified parts of digestive tract
CPT/HCPCS: 36415; 80053; 83690; 85025; 96374; 99284; J2405; J3490; J7120; 99283

== ENCOUNTER 2021-07-03 10:11 | Day surgery (SDC) | payer BC ==
[~2021-07-03 10:11] MED LIST changes: -Lactated Ringers 1,000 ML IV SCH; +Midazolam 1 MG/ML 2 ML SDV ONE; +Propofol 200 MG/20 ML SDV ONE; +Sodium Chloride 0.9% 10 ML Syringe FLUSH PRN; +Sodium Chloride 0.9% 2.5 ML Syringe FLUSH PRN; +Sodium Chloride 0.9% 20 ML SDV IV PRN; -cefOXitin 2 GM in Premix Bag 1 BAG IV ONE; +fentaNYL 100 MCG/2 ML SDV ONE
[2021-07-03] MEDS ORDERED: HYDROmorphone 1 MG/ML Syringe IVPUSH PRN (11:49)
[2021-07-03] MEDS ORDERED: fentaNYL 100 MCG/2 ML SDV IVPUSH PRN (11:49)
[2021-07-03] MEDS ORDERED: Albuterol 0.083% 2.5 MG/3 ML Neb Soln NEB PRN (11:49)
[2021-07-03] MEDS ORDERED: Naloxone 0.4 MG/ML SDV IVPUSH PRN (11:49)
[2021-07-03] MEDS ORDERED: Ondansetron 4 MG/2 ML SDV IVPUSH PRN (11:49)
[2021-07-03] MEDS ORDERED: Ketamine HCL/NACL, ISO-OSM 50 MG/5 ML Syringe ONE (11:52)
[2021-07-03] MEDS ORDERED: Ondansetron 4 MG/2 ML SDV ONE (12:41)
[2021-07-03] MEDS ORDERED: Midazolam 1 MG/ML 2 ML SDV ONE (12:46)
[2021-07-03] MEDS ORDERED: Propofol 200 MG/20 ML SDV ONE (12:46)
[2021-07-03 13:23] VITALS: BP 114/79; PULSE 80
== END 2021-07-03 14:08 | disposition home or self-care (01) ==
LOC: MW.SDS 10:11
PROVIDERS: ATTEND Surgery
DX: R19.4 Change in bowel habit (principal); R11.2 Nausea with vomiting, unspecified; E66.9 Obesity, unspecified; F17.210 Nicotine dependence, cigarettes, uncomplicated; Z79.899 Other long term (current) drug therapy; Z90.49 Acquired absence of other specified parts of digestive tract; Z68.34 Body mass index [BMI] 34.0-34.9, adult; Z98.890 Other specified postprocedural states
CPT/HCPCS: 43239; 45380; 81025; J2250; J2405; J2704; 00813; J3010

== ENCOUNTER 2021-09-20 13:44 | Emergency (ER) | payer BC ==
[2021-09-20 13:51] VITALS: BP 145/76; PULSE 59
[2021-09-20] MEDS ORDERED: Sodium Chloride 0.9% 1,000 ML IV ONE (13:53)
[2021-09-20] MEDS ORDERED: diphenhydrAMINE 50 MG/ML SDV IVPUSH ONE (13:55)
[2021-09-20] MEDS ORDERED: Haloperidol Lactate 5 MG/ML SDV IM ONE (13:55)
[2021-09-20 14:50] LABS: CARBON DIOXIDE,CO2 18.7 mmol/L (21.0-32.0); POTASSIUM,K 3.2 mmol/L (3.5-5.1)
[2021-09-20] MEDS ORDERED: Scopolamine 1.5 MG Transdermal Patch TRDERM STA (15:19)
== END 2021-09-20 15:31 | disposition left against medical advice (07) ==
LOC: MW.ED 13:44
DX: R11.2 Nausea with vomiting, unspecified (principal); R10.12 Left upper quadrant pain; E66.9 Obesity, unspecified; Z68.30 Body mass index [BMI] 30.0-30.9, adult; Z79.899 Other long term (current) drug therapy
CPT/HCPCS: 36415; 80053; 80305; 81001; 81025; 83690; 85025; 87086; 96361; 96372; 96374; 99284; A9270; J1200; J1630; J7030

== ENCOUNTER 2021-11-21 17:25 | Emergency (ER) | payer BC | END 2021-11-21 17:42 | disposition left against medical advice (07) | LOC: MW.ED 17:25 | DX: Z53.21 Procedure and treatment not carried out due to patient leaving prior to being seen by health care provider (principal) ==

== ENCOUNTER 2022-10-08 13:42 | Inpatient (IN) | payer BC ==
[2022-10-08] MEDS ORDERED: Ondansetron 4 MG/2 ML SDV IVPUSH ONE ×2 (14:03→16:32)
[2022-10-08] MEDS ORDERED: Sodium Chloride 0.9% 1,000 ML IV ONE ×2 (14:03→16:00)
[2022-10-08] MEDS ORDERED: Ketorolac 30 MG/ML SDV IVPUSH ONE (14:03)
[2022-10-08 14:27] LABS: BASOPHILS PERCENT AUTO 0.1 % (0.0-1.5); HEMATOCRIT 42.2 % (36.0-46.0); HEMOGLOBIN 14.6 g/dL (12.0-16.0); LYMPHOCYTES ABSOLUTE AUTO 1.7 K/uL (0.6-2.4); LYMPHOCYTES PERCENT AUTO 11.1 % (16.0-40.0); MEAN CORPUSCULAR HGB CONC 34.6 g/dL (31.0-37.0); MONOCYTES ABSOLUTE AUTO 1.7 K/uL (0.0-0.8); MONOCYTES PERCENT AUTO 11.1 % (0.0-15.0); NEUTROPHILS ABSOLUTE AUTO 12.1 K/uL (1.4-5.7); NEUTROPHILS PERCENT AUTO 77.7 % (48.0-80.0); NRBC ABSOLUTE 0 K/uL; PLATELET COUNT,PLT 458 K/uL (150-400); RED BLOOD CELL COUNT 5.41 M/uL (4.30-5.90); WHITE BLOOD CELL COUNT,WBC 15.64 K/uL (4.0-11.0)
[2022-10-08 14:59] LABS: ALBUMIN 4.1 g/dL (3.4-5.0); CALCIUM 9.5 mg/dL (8.5-10.1); CARBON DIOXIDE,CO2 27.5 mmol/L (21.0-32.0); CREATININE 0.9 mg/dL (0.6-1.0); EST CRCL DRUG DOSING (CG) 88.68 mL/min; POTASSIUM,K 3.4 mmol/L (3.5-5.1); PROTEIN TOTAL,TP 8.2 g/dL (6.4-8.2)
[2022-10-08 15:33] LABS: APPEARANCE,URINE CLEAR; BILIRUBIN,URINE NEGATIVE (NEGATIVE); COLOR,URINE YELLOW; GLUCOSE,URINE NEGATIVE (NEGATIVE); KETONES,URINE TRACE mg/dL (NEGATIVE); LEUKOCYTE ESTERASE,URINE TRACE (NEGATIVE); NITRITE,URINE POSITIVE (NEGATIVE); OCCULT BLOOD,URINE MODERATE (NEGATIVE); PROTEIN,URINE TRACE mg/dL (NEGATIVE)
[2022-10-08 15:57] LABS: BACTERIA,URINE FEW (NEGATIVE); EPITHELIAL CELLS,URINE MANY (NONE-FEW); MUCUS,URINE LIGHT (NONE-MOD)
[2022-10-08] MEDS ORDERED: cefTRIAXone 1 GM in Sodium Chloride 0.9% 50 ML IV ONE (15:58)
[2022-10-08] MEDS ORDERED: Morphine 4 MG/ML Syringe IVPUSH ONE (16:00)
[2022-10-08] MEDS ORDERED: Acetaminophen 325 MG Tab PO PRN (17:57)
[2022-10-08] MEDS ORDERED: Promethazine 25 MG/ML SDV IM ONE (18:00)
[2022-10-08] MEDS: oxyCODONE 5 MG Tab PO PRN (19:00)
[2022-10-08] MEDS: Ondansetron 4 MG/2 ML SDV IVPUSH PRN (23:04)
[2022-10-08] MEDS: Sodium Chloride 0.9% 1,000 ML IV SCH (23:50)
[2022-10-08] MEDS: Morphine 2 MG/ML SYRINGE IVPUSH PRN (23:50)
[2022-10-09] MEDS: Ondansetron 4 MG/2 ML SDV IVPUSH PRN ×4 (05:38→22:04)
[2022-10-09] MEDS: Morphine 2 MG/ML SYRINGE IVPUSH PRN ×3 (06:01→22:15)
[2022-10-09 06:20] LABS: BASOPHILS PERCENT AUTO 0.2 % (0.0-1.5); EOSINOPHILS PERCENT AUTO 0.2 % (0.0-7.0); HEMATOCRIT 40.3 % (36.0-46.0); HEMOGLOBIN 13.9 g/dL (12.0-16.0); LYMPHOCYTES PERCENT AUTO 17.6 % (16.0-40.0); MEAN CORPUSCULAR HEMOGLOBIN 27.3 pg (27.0-32.0); MEAN CORPUSCULAR HGB CONC 34.5 g/dL (31.0-37.0); MEAN CORPUSCULAR VOLUME 79.2 fL (80.0-98.0); MONOCYTES ABSOLUTE AUTO 2.2 K/uL (0.0-0.8); NEUTROPHILS ABSOLUTE AUTO 11.6 K/uL (1.4-5.7); NRBC ABSOLUTE 0 K/uL; PLATELET COUNT,PLT 383 K/uL (150-400); RED BLOOD CELL COUNT 5.09 M/uL (4.30-5.90); WHITE BLOOD CELL COUNT,WBC 16.85 K/uL (4.0-11.0)
[2022-10-09 06:26] LABS: CALCIUM 8.9 mg/dL (8.5-10.1); CARBON DIOXIDE,CO2 25.2 mmol/L (21.0-32.0); EST CRCL DRUG DOSING (CG) 79.81 mL/min; POTASSIUM,K 3.3 mmol/L (3.5-5.1)
[2022-10-09] MEDS: Sodium Chloride 0.9% 1,000 ML IV SCH ×2 (07:44→22:05)
[2022-10-09] MEDS ORDERED: NS with KCl 40mEq 1,000 ML IV SCH (10:00)
[2022-10-09] MEDS: oxyCODONE 5 MG Tab PO PRN ×2 (10:49→16:49)
[2022-10-09] MEDS: cefTRIAXone 1 GM in Sodium Chloride 0.9% 50 ML IV SCH (15:39)
[2022-10-10] MEDS: Sodium Chloride 0.9% 1,000 ML IV SCH ×2 (05:44→15:31)
[2022-10-10] MEDS: Morphine 2 MG/ML SYRINGE IVPUSH PRN ×3 (06:08→19:51)
[2022-10-10] MEDS: Ondansetron 4 MG/2 ML SDV IVPUSH PRN ×3 (06:10→19:49)
[2022-10-10 06:29] LABS: BASOPHILS ABSOLUTE AUTO 0.1 K/uL (0.0-0.1); BASOPHILS PERCENT AUTO 0.8 % (0.0-1.5); EOSINOPHILS ABSOLUTE AUTO 0.4 K/uL (0.0-0.7); HEMATOCRIT 34.3 % (36.0-46.0); HEMOGLOBIN 11.4 g/dL (12.0-16.0); LYMPHOCYTES ABSOLUTE AUTO 3.2 K/uL (0.6-2.4); LYMPHOCYTES PERCENT AUTO 36.9 % (16.0-40.0); MEAN CORPUSCULAR HEMOGLOBIN 26.6 pg (27.0-32.0); MEAN CORPUSCULAR HGB CONC 33.2 g/dL (31.0-37.0); MONOCYTES ABSOLUTE AUTO 0.9 K/uL (0.0-0.8); NEUTROPHILS ABSOLUTE AUTO 4.1 K/uL (1.4-5.7); NEUTROPHILS PERCENT AUTO 47.3 % (48.0-80.0); NRBC ABSOLUTE 0 K/uL; PLATELET COUNT,PLT 295 K/uL (150-400); RED BLOOD CELL COUNT 4.29 M/uL (4.30-5.90); WHITE BLOOD CELL COUNT,WBC 8.62 K/uL (4.0-11.0)
[2022-10-10 06:50] LABS: CALCIUM 8.1 mg/dL (8.5-10.1); CARBON DIOXIDE,CO2 23.3 mmol/L (21.0-32.0); CREATININE 0.8 mg/dL (0.6-1.0); EST CRCL DRUG DOSING (CG) 99.76 mL/min; POTASSIUM,K 3.8 mmol/L (3.5-5.1)
[2022-10-10] MEDS ORDERED: Promethazine 25 MG/ML SDV IM PRN (10:45)
[2022-10-10] MEDS: Pantoprazole 40 MG in Sodium Chloride 0.9% 10 ML IVPUSH SCH (12:29)
[2022-10-10] MEDS: Metoclopramide 10 MG/2 ML SDV IVPUSH PRN (12:32)
[2022-10-10] MEDS: cefTRIAXone 1 GM in Sodium Chloride 0.9% 50 ML IV SCH (15:31)
[2022-10-10] MEDS: Ibuprofen 400 MG Tab PO PRN (15:56)
[2022-10-11] MEDS: Sodium Chloride 0.9% 1,000 ML IV SCH ×2 (00:05→09:03)
[2022-10-11] MEDS: Ibuprofen 400 MG Tab PO PRN (04:24)
[2022-10-11] MEDS: Metoclopramide 10 MG/2 ML SDV IVPUSH PRN (05:16)
[2022-10-11] MEDS: Pantoprazole 40 MG in Sodium Chloride 0.9% 10 ML IVPUSH SCH ×2 (06:13→06:32)
[2022-10-11 07:21] LABS: BASOPHILS ABSOLUTE AUTO 0.1 K/uL (0.0-0.1); BASOPHILS PERCENT AUTO 0.6 % (0.0-1.5); EOSINOPHILS ABSOLUTE AUTO 0.1 K/uL (0.0-0.7); EOSINOPHILS PERCENT AUTO 1.6 % (0.0-7.0); HEMATOCRIT 36.6 % (36.0-46.0); HEMOGLOBIN 12.5 g/dL (12.0-16.0); LYMPHOCYTES ABSOLUTE AUTO 1.8 K/uL (0.6-2.4); LYMPHOCYTES PERCENT AUTO 21.6 % (16.0-40.0); MEAN CORPUSCULAR HEMOGLOBIN 26.7 pg (27.0-32.0); MEAN CORPUSCULAR HGB CONC 34.2 g/dL (31.0-37.0); MONOCYTES PERCENT AUTO 11.4 % (0.0-15.0); NEUTROPHILS ABSOLUTE AUTO 5.4 K/uL (1.4-5.7); NEUTROPHILS PERCENT AUTO 64.8 % (48.0-80.0); NRBC ABSOLUTE 0 K/uL; PLATELET COUNT,PLT 297 K/uL (150-400); RED BLOOD CELL COUNT 4.69 M/uL (4.30-5.90); WHITE BLOOD CELL COUNT,WBC 8.32 K/uL (4.0-11.0)
[2022-10-11 07:51] LABS: CALCIUM 8.2 mg/dL (8.5-10.1); CARBON DIOXIDE,CO2 22.9 mmol/L (21.0-32.0); CREATININE 0.9 mg/dL (0.6-1.0); EST CRCL DRUG DOSING (CG) 88.68 mL/min; POTASSIUM,K 3.7 mmol/L (3.5-5.1)
[2022-10-11] MEDS: oxyCODONE 5 MG Tab PO PRN (09:02)
[2022-10-11] MEDS: Ondansetron 4 MG/2 ML SDV IVPUSH PRN (09:02)
[2022-10-11 14:18] VITALS: BP 149/97; PULSE 58
== END 2022-10-11 14:00 | disposition home or self-care (01) | DRG 463 ==
LOC: MW.ED 13:42 → MW.MS 16:59
PROVIDERS: ADMIT Internal Medicine; ATTEND Internal Medicine
DX: N12 Tubulo-interstitial nephritis, not specified as acute or chronic (principal); E86.0 Dehydration; K59.09 Other constipation; F41.9 Anxiety disorder, unspecified; E66.9 Obesity, unspecified; F17.210 Nicotine dependence, cigarettes, uncomplicated; Z68.37 Body mass index [BMI] 37.0-37.9, adult; Z90.89 Acquired absence of other organs; Z90.49 Acquired absence of other specified parts of digestive tract
CPT/HCPCS: 36415; 74176; 74176-26; 80048; 80053; 81001; 81025; 83605; 83690; 85025; 87040; 87086; 87088; 87186; 96361; 96374; 96375; 96376; 99285; 99285-25; A9270-GY; C9113; J0696; J1885; J2270; J2405; J2550; J2765; J3480; J3490; J7030

== ENCOUNTER 2022-11-21 17:28 | Emergency (ER) | payer BC ==
[2022-11-21] MEDS ORDERED: Sodium Chloride 0.9% 1,000 ML IV ONE (19:06)
[2022-11-21] MEDS ORDERED: droPERidol 5 MG/2 ML SDV IVPUSH ONE (19:07)
[2022-11-21 19:43] LABS: BASOPHILS ABSOLUTE AUTO 0.1 K/uL (0.0-0.1); BASOPHILS PERCENT AUTO 0.8 % (0.0-1.5); EOSINOPHILS PERCENT AUTO 0.1 % (0.0-7.0); HEMATOCRIT 38.6 % (36.0-46.0); HEMOGLOBIN 13.4 g/dL (12.0-16.0); LYMPHOCYTES ABSOLUTE AUTO 1.6 K/uL (0.6-2.4); LYMPHOCYTES PERCENT AUTO 15.9 % (16.0-40.0); MEAN CORPUSCULAR HGB CONC 34.7 g/dL (31.0-37.0); MEAN CORPUSCULAR VOLUME 80.6 fL (80.0-98.0); MONOCYTES ABSOLUTE AUTO 0.8 K/uL (0.0-0.8); MONOCYTES PERCENT AUTO 7.9 % (0.0-15.0); NEUTROPHILS ABSOLUTE AUTO 7.6 K/uL (1.4-5.7); NEUTROPHILS PERCENT AUTO 75.3 % (48.0-80.0); NRBC ABSOLUTE 0 K/uL; PLATELET COUNT,PLT 422 K/uL (150-400); RED BLOOD CELL COUNT 4.79 M/uL (4.30-5.90); WHITE BLOOD CELL COUNT,WBC 10.11 K/uL (4.0-11.0)
[2022-11-21 19:44] LABS: A/G RATIO 1.2 (0.9-1.6); ALBUMIN 4.1 g/dL (3.4-5.0); BILIRUBIN TOTAL 0.7 mg/dL (0.2-1.0); CALCIUM 8.9 mg/dL (8.5-10.1); CARBON DIOXIDE,CO2 22.1 mmol/L (21.0-32.0); CREATININE 0.9 mg/dL (0.6-1.0); EST CRCL DRUG DOSING (CG) 88.68 mL/min; MAGNESIUM 1.8 mg/dL (1.8-2.4); POTASSIUM,K 3.3 mmol/L (3.5-5.1); PROTEIN TOTAL,TP 7.4 g/dL (6.4-8.2)
[2022-11-21 20:29] VITALS: BP 153/87; PULSE 57
== END 2022-11-21 20:28 | disposition home or self-care (01) ==
LOC: MW.ED 17:28
DX: R11.2 Nausea with vomiting, unspecified (principal); Z72.0 Tobacco use
CPT/HCPCS: 36415; 80053; 83690; 83735; 84703; 85025; 96361; 96374; 99284; J1790; J7030

== ENCOUNTER 2022-11-23 09:13 | Emergency (ER) | payer SELFPAY ==
[2022-11-23] MEDS ORDERED: Sodium Chloride 0.9% 10 ML Syringe FLUSH PRN (09:54)
[2022-11-23] MEDS ORDERED: droPERidol 5 MG/2 ML SDV IVPUSH ONE ×2 (09:54→13:54)
[2022-11-23] MEDS ORDERED: Sodium Chloride 0.9% 2.5 ML Syringe FLUSH PRN (09:54)
[2022-11-23] MEDS ORDERED: Famotidine 20 MG/2 ML SDV IVPUSH ONE (09:54)
[2022-11-23] MEDS ORDERED: Sodium Chloride 0.9% 1,000 ML IV ONE (09:54)
[2022-11-23] MEDS ORDERED: diphenhydrAMINE 50 MG/ML SDV IVPUSH ONE (09:54)
[2022-11-23 10:51] LABS: BASOPHILS PERCENT AUTO 0.2 % (0.0-1.5); HEMATOCRIT 37.8 % (36.0-46.0); HEMOGLOBIN 13.1 g/dL (12.0-16.0); LYMPHOCYTES ABSOLUTE AUTO 1.1 K/uL (0.6-2.4); LYMPHOCYTES PERCENT AUTO 9.5 % (16.0-40.0); MEAN CORPUSCULAR HEMOGLOBIN 27.5 pg (27.0-32.0); MEAN CORPUSCULAR HGB CONC 34.7 g/dL (31.0-37.0); MEAN CORPUSCULAR VOLUME 79.4 fL (80.0-98.0); MONOCYTES PERCENT AUTO 8.4 % (0.0-15.0); NEUTROPHILS ABSOLUTE AUTO 9.4 K/uL (1.4-5.7); NEUTROPHILS PERCENT AUTO 81.9 % (48.0-80.0); NRBC ABSOLUTE 0 K/uL; PLATELET COUNT,PLT 380 K/uL (150-400); RED BLOOD CELL COUNT 4.76 M/uL (4.30-5.90); WHITE BLOOD CELL COUNT,WBC 11.49 K/uL (4.0-11.0)
[2022-11-23 11:24] LABS: A/G RATIO 1.3 (0.9-1.6); ALBUMIN 4.2 g/dL (3.4-5.0); BILIRUBIN TOTAL 0.9 mg/dL (0.2-1.0); CALCIUM 8.9 mg/dL (8.5-10.1); CARBON DIOXIDE,CO2 23.9 mmol/L (21.0-32.0); CREATININE 0.9 mg/dL (0.6-1.0); EST CRCL DRUG DOSING (CG) 92.11 mL/min; POTASSIUM,K 3.2 mmol/L (3.5-5.1); PROTEIN TOTAL,TP 7.4 g/dL (6.4-8.2)
[2022-11-23] MEDS ORDERED: Lactated Ringers 1,000 ML IV ONE (11:37)
[2022-11-23] MEDS ORDERED: Iopamidol 755 MG/ML 500 ML Multipack Bottle IVPUSH STA (14:17)
[2022-11-23 15:46] LABS: BILIRUBIN,URINE NEGATIVE (NEGATIVE); COLOR,URINE YELLOW; GLUCOSE,URINE NEGATIVE (NEGATIVE); KETONES,URINE 15 mg/dL (NEGATIVE); LEUKOCYTE ESTERASE,URINE NEGATIVE (NEGATIVE); NITRITE,URINE NEGATIVE (NEGATIVE); OCCULT BLOOD,URINE TRACE-INTACT (NEGATIVE); PH,URINE 6.5 (5.0-8.0); PROTEIN,URINE NEGATIVE (NEGATIVE)
[2022-11-23 15:56] LABS: APPEARANCE,URINE HAZY
[2022-11-23 15:57] LABS: BACTERIA,URINE FEW (NEGATIVE); MUCUS,URINE LIGHT (NONE-MOD); SQUAMOUS EPITHELIAL CELLS,UR FEW; WBC,URINE 0-2 (0-5/HPF)
[2022-11-23] MEDS ORDERED: Cefdinir 300 MG Cap PO ONE (16:06)
[2022-11-23 16:24] VITALS: BP 127/68; PULSE 76
== END 2022-11-23 16:24 | disposition home or self-care (01) ==
LOC: MW.ED 09:13
DX: R11.15 Cyclical vomiting syndrome unrelated to migraine (principal); E87.6 Hypokalemia; E87.1 Hypo-osmolality and hyponatremia; N39.0 Urinary tract infection, site not specified; F17.210 Nicotine dependence, cigarettes, uncomplicated; Z79.899 Other long term (current) drug therapy
CPT/HCPCS: 36415; 74177; 80053; 81001; 83690; 84484; 84703; 85025; 93005; 96361; 96374; 96375; 96376; 99284; J1200; J1790; J3490; J7030; J7120; Q9967; 93010